=== PATIENT | female | born 1990 | race Caucasian/White ===

== ENCOUNTER → 2017-12-08 | Outpatient (CLI) | payer MEDICAID, OTHER ==
[~2017-12-08] MED LIST: ACHD5005 PO; IBUP-1773 PO; PREN1TAB71 PO
--- NOTE | 2017-12-08 10:38 | Diagnostic Imaging Report ---
PROCEDURE: MRI right joint lower extremity without contrast. TECHNIQUE: Multiplanar, multisequence non contrast-enhanced MRI of the right lower extremity was accomplished. INDICATION: Medial right knee pain. FINDINGS: The anterior cruciate and posterior cruciate ligaments are intact. Both the superficial and deep components of the medial collateral ligament are intact. The biceps femoris, fibular collateral, popliteus and iliotibial band are intact. Both the medial and lateral meniscus are normal in signal intensity and morphology. Quadriceps tendons and patellar tendons are intact. There is a small knee joint effusion. The articular cartilage is well maintained in all 3 knee joint compartments. There are no other focal soft tissue abnormalities. IMPRESSION: Small knee joint effusion. No other internal derangement of the knee. Dictated by: Dictated on workstation # [id number]
== END ==
LOC: RAD 09:18
PROVIDERS: ATTEND Nurse Practitioner Family
DX: M25.561 Pain in right knee (principal); M25.461 Effusion, right knee
CPT/HCPCS: 73721